=== PATIENT | male | born 1985 | race Caucasian/White ===

== ENCOUNTER 2023-06-03 19:40 | Emergency (ER) | payer SELFPAY ==
[~2023-06-03] VITALS: Ht 165.1 cm; Wt 81.6 kg
[2023-06-03] MEDS ORDERED: NACL 0.9% 2,000 ML IV ONE (19:55)
[2023-06-03 20:00] VITALS: BP 150/74; PULSE 104; RESP 16; TEMP 97.4; O2SAT 95
[2023-06-03] MEDS ORDERED: LORazepam 2 MG/ML VIAL IM ONE (20:25)
[2023-06-03] MEDS ORDERED: HALOPERIDOL IM 5 MG/ML VIAL IM ONE (20:25)
[2023-06-03 20:54] VITALS: BP 120/81; PULSE 97; RESP 19; O2SAT 98
[2023-06-03 20:56] LABS: BASOPHILS # (AUTO) 0.1 K/uL (0.00-0.22); BASOPHILS % (AUTO) 0.8 % (0.0-2.0); EOSINOPHILS # (AUTO) 0.1 K/uL (0-0.4); EOSINOPHILS % (AUTO) 0.7 % (0.0-4.0); HEMATOCRIT 41.7 % (36-52); LYMPHOCYTES # (AUTO) 1.6 K/uL (2.0-11.5); LYMPHOCYTES % (AUTO) 18.7 % (20.5-51.1); MEAN CORPUSCULAR HEMOGLOBIN 29 pg (27-31); MEAN CORPUSCULAR HGB CONC 34 g/dL (33-37); MEAN CORPUSCULAR VOLUME 85.8 fL (80-94); MONOCYTES # (AUTO) 0.7 K/uL (0.8-1.0); MONOCYTES % (AUTO) 8.2 % (1.7-9.3); NEUTROPHILS % (AUTO) 71.6 % (42.2-75.2); PLATELET COUNT (AUTO) 293 K/uL (140-450); RED BLOOD CELL COUNT(AUTO) 4.86 MIL/uL (4.20-6.10); RED CELL DISTRIBUTION WIDTH 13.7 % (11.6-13.7); WHITE BLOOD COUNT (AUTO) 8.4 K/uL (4.8-10.8)
[2023-06-03 21:16] LABS: ALANINE AMINOTRANSFERASE 120 U/L (12-78); ALBUMIN 4.2 g/dL (3.4-5.0); ALKALINE PHOSPHATASE 79 U/L (50-136); ANION GAP 8.7 (8-16); ASPARTATE AMINOTRANSFERASE 64 U/L (15-37); CALCIUM 9.4 mg/dL (8.5-10.1); CARBON DIOXIDE 30.4 mmol/L (21-32); CHLORIDE 104 mmol/L (98-107); CREATININE 0.9 mg/dL (0.6-1.3); GFR ARICAN-AMERICAN 121 mL/min (>90); GFR NON ARICAN-AMERICAN 100 mL/min (>90); GLUCOSE 123 mg/dL (74-106); POTASSIUM 3.1 mmol/L (3.5-5.1); SODIUM SERUM 140 mmol/L (136-145); TOTAL BILIRUBIN 1.1 mg/dL (0.0-1.0); TOTAL PROTEIN, SERUM 8.3 g/dL (6.4-8.2); UREA NITROGEN, BLOOD 18 mg/dL (7-18)
[2023-06-03 21:30] LABS: ACETAMINOPHEN < 0.5 ug/ml (10-30); SALICYLATE < 2.8 mg/dL (2.8-20.0)
== END 2023-06-03 21:47 | disposition left against medical advice (07) ==
LOC: MED 19:40
DX: G93.41 Metabolic encephalopathy (principal); Z79.899 Other long term (current) drug therapy
CPT/HCPCS: 36415; 70450; 80053; 85025; 96360; 96361; 99291; G0480; J7030